=== PATIENT | female | born 1990 | race Caucasian/White ===

== ENCOUNTER 2025-10-01 12:34 | Outpatient (CLI) | payer BC, SELFPAY ==
--- NOTE | 2025-10-01 12:48 | US_ITS ---
WS: [id number] LIMITED OBSTETRICAL ULTRASOUND HISTORY: 12 WEEKS GESTATION OF COMPARISON: None available. Presentation: Breech Cervix: Closed and normal length. Placenta: Posterior, no previa. Grade: 0 HEART: FHR of 149 BPM. measurements: BPD = 2.9 cm = 15w2d; HC = 11.8 cm = 15w6d; AC = 9.2 cm = 15w3d; FL = 2.0 cm = 15w6d; AGA by ultrasound: 15w4d PANDA by ultrasound: 03/21/2026 US/US OB <= 14 weeks fetus [id number] IMPRESSION: 1. Single intrauterine gestation of 15w4d with an PANDA of 03/21/2026. 2. Normal cardiac activity.
== END 2025-10-01 12:35 | disposition home or self-care (01) ==
PROVIDERS: PCP Family Medicine; Visit Provider Family Medicine
DX: Z34.91 Encounter for supervision of normal pregnancy, unspecified, first trimester (principal); Z3A.12 12 weeks gestation of pregnancy
CPT/HCPCS: 76801